=== PATIENT | female | born 1950 | race Two or more races ===

== ENCOUNTER 2020-12-15 11:36 | Emergency (ER) | payer MEDICARE, OTHER ==
[~2020-12-15] VITALS: Ht 157.5 cm; Wt 59.0 kg
--- NOTE | 2020-12-15 13:00 | NUR ---
Patient discharged to home in stable condition. Written and verbal after care instructions given. Patient verbalizes understanding of instruction.
[2020-12-15 13:03] VITALS: BP 125/75
== END 2020-12-15 13:03 | disposition home or self-care (01) ==
LOC: ER 11:46
DX: R22.1 Localized swelling, mass and lump, neck (principal)